=== PATIENT | female | born 1995 | race Caucasian/White ===

== ENCOUNTER 2022-02-08 16:34 | Inpatient (IN) | payer OTHER ==
[~2022-02-08] VITALS: Ht 167.6 cm; Wt 87.1 kg
[~2022-02-08 16:34] MED LIST: FLINTSTONES1 EAC1 PO
[2022-02-08] MEDS ORDERED: FERROUS SULFAT325 M2 PO (17:43)
[2022-02-08 17:59] LABS: HEMOGLOBIN 8.8 gm/dl (12.3-15.3); RED BLOOD COUNT 3.46 M/UL (4.00-5.10); WHITE BLOOD COUNT 9.9 K/UL (4.5-11.0)
[2022-02-09] MEDS ORDERED: IBUPROFEN600 MG PO (12:57)
[2022-02-09] MEDS ORDERED: COLACE100 MG PO (12:57)
[2022-02-09] MEDS ORDERED: FERROUS SULFAT325 MG PO (12:57)
[2022-02-10 06:08] LABS: HEMOGLOBIN 8.4 gm/dl (12.3-15.3)
== END 2022-02-10 15:58 | disposition home or self-care (01) | DRG 807 ==
LOC: GENOP 16:34 → OB 02-09 05:46
PROVIDERS: ADMIT Obstetrics & Gynecology
PROC: 4A1HXCZ Monitoring of Products of Conception, Cardiac Rate, External Approach (ICD-10-PCS; 2022-02-08)
PROC: 10E0XZZ Delivery of Products of Conception, External Approach (ICD-10-PCS; principal; 2022-02-09)
PROC: 10907ZC Drainage of Amniotic Fluid, Therapeutic from Products of Conception, Via Natural or Artificial Opening (ICD-10-PCS; 2022-02-09)
PROC: 3E033VJ Introduction of Other Hormone into Peripheral Vein, Percutaneous Approach (ICD-10-PCS; 2022-02-09)
PROC: 3E0234Z Introduction of Serum, Toxoid and Vaccine into Muscle, Percutaneous Approach (ICD-10-PCS; 2022-02-09)
DX: O80 Encounter for full-term uncomplicated delivery (principal); Z37.0 Single live birth; Z3A.38 38 weeks gestation of pregnancy; Z20.822 Contact with and (suspected) exposure to COVID-19; Z28.310 Unvaccinated for COVID-19; Z23 Encounter for immunization
CPT/HCPCS: 36415; 81001; 85014; 85018; 85025; 90471; 90715; J2590